=== PATIENT | female | born 1955 | race Caucasian/White ===

== ENCOUNTER 2021-05-26 09:56 | Outpatient (CLI) | payer OTHER, SELFPAY ==
--- NOTE | 2021-05-26 10:28 | ECG_ITS ---
Measurements Intervals [place] Rate: 97 P: 63 WY: 148 QRS: -16 QRSD: 83 T: 7 QT: 349 QTc: 445 Interpretive Statements SINUS RHYTHM POSSIBLE LEFT ATRIAL ENLARGEMENT [-0.1mV P WAVE IN V1/V2] BORDERLINE ECG NO PREVIOUS ECG AVAILABLE FOR COMPARISON Electronically Signed On 05-26-2021 12:21:07 CDT by Andrew Flores M.D.
[2021-05-26 10:55] LABS: Anion Gap 5 mmol/L (8-16); Blood Urea Nitrogen 14 mg/dL (7-17); Carbon Dioxide 30 mmol/L (22-30); Chloride 102 mmol/L (98-107); Estimated Glomerular Filt Rate > 60; Glucose 96 mg/dL (65-110); Potassium 3.6 mmol/L (3.4-5.0); Sodium 137 mmol/L (137-145)
[2021-05-26 10:56] LABS: Partial Thromboplastin Time 27.6 SECONDS (22.3-36.8)
== END 2021-05-26 09:57 | disposition home or self-care (01) ==
PROVIDERS: Referring Provider Anesthesiology; Visit Provider Urology
DX: N20.0 Calculus of kidney (principal); I10 Essential (primary) hypertension; Z51.81 Encounter for therapeutic drug level monitoring; Z79.899 Other long term (current) drug therapy
CPT/HCPCS: 36415; 80048; 85730; 87086; 87088; 93005

== ENCOUNTER 2021-06-01 02:14 | Day surgery (SDC) | payer OTHER, SELFPAY ==
[2021-05-25 15:18] VITALS: BMI 25.9
--- NOTE | 2021-05-25 15:50 | PC.NURSE ---
Report to the Outpatient Waiting Room, entrance under the green pavilion located off [facility], at time _7:30 AM on date __06/01/21 . OR Time: ___9:30AM . - You and your visitor will be asked a series of questions to screen for COVID 19 for your protection. - A mask is required within the hospital. Preoperative COVID Testing Requirements: No COVID Test needed if: (proof is required; if not received patient will have Rapid Test prior to entry) - Patient has received COVID Vaccine at least 14 days prior to procedure date or - Patient has positive COVID test result within last 90 days of surgery date. COVID Test needed if above criteria is not met If not COVID vaccinated a COVID test must be conducted within 72 hours of surgery and patient is asked to isolate self from time of testing until procedure. You will go to the [facility] for your COVID testing. The [employer] site is located at the corner of [address] [facility]. You will only be called if COVID results are positive and your surgeon may reschedule your elective surgery date. Patients may have clear liquids (water, carbonated beverages, clear teas, apple juice) until 3 hours prior to surgery with a maximum of 20 ounces. - No food from midnight until time of surgery - Infants may have breast milk until 4 hours before surgery, formula 6 hours prior to surgery. - Children will be allowed to drink immediately following surgery. If applicable, please bring a bottle or sippy cup to assist with drinking. Juice, water, soda, and popsicles are readily available. For infants on formula, please bring formula the day of surgery. Pacifiers are allowed. Take the following medications with a SIP of water the morning of surgery: ___NONE Medications to discontinue per physician NONE Date to take last dose Please no make-up, nail indian, hairspray, perfume, deodorant, or body powder the day of surgery. No jewelry (including any body piercings) or valuables the day of surgery, leave them at home. Please take a shower or bath the night before, or the morning of, surgery with an antibacterial soap. Wear comfortable, loose fitting clothing. Children are encouraged to wear pajamas. - Jewelry must be removed prior to entering the operating room. Rings and piercings that are not removed may be cut off. - The hospital will not accept responsibility for valuables. - Please leave all valuables, including medications, at home the day of surgery. If you are going home after surgery, a licensed recycling collections driver must drive you home. - NO public transportation without another adult. - We recommend that an adult stay with you for 24 hours following discharge. - We also recommend that you do not drive, make important decision, drink alcoholic beverages, or take any drugs that were not prescribed by your health care provider for at least 24 hours after your discharge time. For Pediatric surgeries, we recommend two adults accompany the child home (only one inside the building at this time). One visitor will be allowed to accompany the patient into the hospital. Patients visitor will be instructed to remain with patient at all times or leave the building. We will allow the visitor to come back to the postoperative area when patient is ready. Follow any additional instructions given to you from your surgeon. Telephone instructions given to __PATIENT & DAUGHTER and asked if any additional questions and then verbalized understanding. Patient advised to call surgeon office or pre surgery nurse liaison [phone] if any additional questions.
--- NOTE | ~2021-06-01 | XR_ITS ---
EXAMINATION: XR abdomen/kub 1V INDICATION: Urolithiasis TECHNIQUE: Supine views of the abdomen were obtained on 2 radiographs. COMPARISON: None FINDINGS: A 1.4 cm stone projects over the right kidney lower pole. No additional urolithiasis is faustina ntified. Surgical clips in the right upper quadrant are likely from prior cholecystectomy. The bowel gas pattern is normal. The visualized lung bases are clear. There is mild osteoarthritis of the hips. IMPRESSION: 1. Right nephrolithiasis Reviewed, dictated and finalized at location B. IMPRESSION: 1. Right nephrolithiasis
--- NOTE | 2021-06-01 08:08 | WPDHPUPDATE1 ---
History and Physical Update Update Date/Time: 06/01/21 08:08 History and Physical has been reviewed, including an updated exam of the patient. There are NO changes in the patient's condition. Risks, benefits, and alternatives have been discussed and questions answered. Patient agrees to proceed with procedure. Proceed with right renal lithotripsy
[2021-06-01 08:30] VITALS: BP 135/85; PULSE 80; RESP 18; TEMP 36.4; O2SAT 99
[2021-06-01] MEDS: LACTATED RINGERS 1,000 ML 30 ML IV CONT (08:30)
[2021-06-01 08:47] LABS: INR 0.9; Prothrombin Time 12.2 Seconds (11.1-14.7)
--- NOTE | 2021-06-01 08:54 | P.PNAN_ITS ---
Anes - Initial Pre Proc Eval Procedure: Operation Date: 06/01/21 09:30 Proposed Procedures p Right Extracorporeal Shock Wave Lithotripsy - Edgar Arauz MD Date/Time: 06/01/21 08:54 Surgeon: Edgar Arauz MD Pre Op Diagnosis: Rt Kidney Stone Patient Data Age: 65 Gender: F Height: 1.68 m Weight: 73 kg Allergies Allergy/AdvReac Type Severity Reaction Status Date / Time iohexol Allergy RASH, HIVES Verified 05/25/21 15:12 [From contrast - CT, X-RAY] Home Medications Medication Instructions Recorded Confirmed Type atorvastatin 20 mg PO DAILY 05/25/21 05/25/21 History triamterene-hydrochlorothiazid 1 tablet PO QAM 05/25/21 05/25/21 History Laboratory Tests 06/01/21 08:11 PT 12.2 Seconds Seconds (11.1-14.7) INR 0.9 Patient hx anesthesia problems: none Family hx anesthesia problems: none Results Review: All pre-operative results and documents have been reviewed as part of the pre-operative evaluation. [facility] Past Medical History Medical History GERD (gastroesophageal reflux disease) Hyperlipidemia Hypertension Social History Social History Smoking status: Never smoker Alcohol intake: never Substance use: never Living arrangements: with family Additional living arrangements comments: [facility] Spiritual care concerns: No Anes - Eval Final PreProcedure Day of Procedure 06/01/21 08:54 Patient weight: overweight Heart: regular rate and rhythm Lungs: clear to auscultation Airway: Mallampati scale class II Neurological: alert and oriented Last oral intake: >/= 8 hours ASA classification: III Emergent: no Anesthetic plan: proceed Anesthesia type and monitoring: general LMA and standard monitoring Results Review: All pre-operative results and documents have been reviewed as part of the pre-operative evaluation. Informed Consent: The patient's anesthetic plan and its attendant risks and benefits were discussed with the patient/family/POA. Questions were solicited and answers provided to the satisfaction of the patient/family/POA.
[2021-06-01] MEDS: ceFAZolin 2 GM/D5W 50 ML 2 GM/50 ML BAG IVPB (09:23)
--- NOTE | 2021-06-01 09:54 | W.PM.PROC2 ---
Procedure Note - Detailed Date of Procedure 06/01/21 Pre-op Diagnosis Rt Kidney Stone Post-op Diagnosis Same Procedure Performed ESWL of right renal calculus Surgeon Edgar Arauz MD Anesthesia General Description of Procedure Patient is taken the operative suite correctly identified. Once anesthesia was obtained the stone was localized in both planes. Two thousand five hundred shocks were given to the stone. Stone appears to be fairly hard. Will see what results she has on follow-up KUB. She was taken recovery room stable condition. Drains No Packing No Pathology None sent Complications No immediate complications Condition Stable Disposition PACU
[2021-06-01 10:03] VITALS: BP 137/85; PULSE 86; RESP 14; TEMP 36.3; O2SAT 99
[2021-06-01 10:15] VITALS: BP 129/85; PULSE 82; RESP 16; O2SAT 98
[2021-06-01 10:29] VITALS: BP 129/82; PULSE 79; RESP 16; O2SAT 94
[2021-06-01 10:31] VITALS: BP 131/83; PULSE 90; RESP 16
[2021-06-01 11:00] VITALS: BP 128/77; PULSE 82; RESP 18
== END 2021-06-01 11:21 | disposition home or self-care (01) ==
PROVIDERS: Visit Provider Urology
PROC: (CPT 50590; principal; 2021-06-01 09:30)
DX: N20.0 Calculus of kidney (principal); I10 Essential (primary) hypertension; E78.5 Hyperlipidemia, unspecified; K21.9 Gastro-esophageal reflux disease without esophagitis
CPT/HCPCS: 50590; 36415; 74018; 85610; J0690; J1100; J2405; J2704; J7120

== ENCOUNTER 2021-06-06 10:20 | Outpatient (CLI) | payer OTHER, SELFPAY ==
--- NOTE | ~2021-06-06 | XR_ITS ---
XR abdomen/kub 1V DATE: 06/06/2021 10:38 INDICATION: Lithotripsy 5 days ago for right kidney stone. Urinary frequency. TECHNIQUE: AP projection, 2 views COMPARISON: 06/01/2021 KUB FINDINGS: Approximately 3.1 cm linear array of small stones in the distal right ureter (Steinstrasse) . Some additional stone fragments may be present in the lower pole of the right kidney. Noncontrast CT abdomen pelvis would be more accurate for detection of residual fragments from the approximate 11 mm calcified stone of the right kidney noted on 05/27 07/29,022, which is no longer intact. Surgical clips, right upper quadrant, consistent with cholecystectomy. No evidence of bowel obstruction. Levoscoliosis and multilevel degenerative disc disease of the lumbar spine. Dextroscoliosis and degen erative spurring of the thoracic spine. IMPRESSION: Steinstrasse of distal right ureter Probable residual stones in the lower pole the right kidney Reviewed, dictated and finalized at Location A. Reviewed, dictated and finalized at location A.
== END 2021-06-06 10:21 | disposition home or self-care (01) ==
LOC: ANHIMG 10:22
PROVIDERS: Visit Provider Nurse Practitioner Family
DX: N20.0 Calculus of kidney (principal); R93.89 Abnormal findings on diagnostic imaging of other specified body structures
CPT/HCPCS: 74018

== ENCOUNTER 2021-06-11 09:53 | Outpatient (CLI) | payer OTHER, SELFPAY ==
--- NOTE | ~2021-06-11 | XR_ITS ---
EXAMINATION: XR abdomen/kub 1V EXAM DATE: 06/11/2021 10:11 INDICATION: Right flank pain. TECHNIQUE: Frontal projection(s) of the abdomen for interpretation. Comparison is made to prior exami nation from 06/06/2021. FINDINGS: Rather large right, small left renal contours. No suspicious soft tissue calcifications faustina ntified. There are cholecystectomy clips. Mild/moderate lumbar levoscoliosis. Small to moderate henry unt of colonic stool and gas. No small bowel obstruction. Lung bases unremarkable. IMPRESSION: 1. Rather large appearing right and small left renal contours. 2. No suspicious calcifications. Reviewed, dictated and finalized at location A.
== END 2021-06-11 09:54 | disposition home or self-care (01) ==
LOC: ANHIMG 09:56
PROVIDERS: Visit Provider Nurse Practitioner Family
DX: R10.9 Unspecified abdominal pain (principal)
CPT/HCPCS: 74018

== ENCOUNTER 2021-06-14 12:03 | Outpatient (CLI) | payer OTHER, SELFPAY ==
--- NOTE | ~2021-06-14 | CT_ITS ---
EXAMINATION: CT abdomen pelvis wo con DATE: 06/14/2021 12:22 INDICATION: Right flank pain. TECHNIQUE: Computed tomography (CT) of the abdomen and pelvis was performed without intravenous contr ast. Automated exposure control and iterative reconstruction technique were employed. The dose-length product was 221.96 mGy-cm. COMPARISON: None. FINDINGS: The visualized portions of the lung bases demonstrate mild atelectasis. No pleural effusion . The heart size is normal. No pericardial effusion. The liver and spleen are normal. There are delgado es of cholecystectomy. The pancreas and left adrenal gland are normal. There is a 3.1 cm mass in righ t adrenal gland measuring low-attenuation, consistent with an adenoma. There is a 10.1 cm cyst in rig ht kidney. There is a 2 mm right kidney stone. There are two 3 mm stones in distal right ureter. Left kidney is normal. There are no dilated loops of bowel. The appendix is normal. There is a small slid ing hiatal hernia. There are no pathologically enlarged lymph nodes. There is no free intraperitoneal fluid. There is severe thoracolumbar spondylosis. IMPRESSION: 1. Two 3 mm stones in distal right ureter. No hydronephrosis. 2. 2 mm nonobstructing right kidney stone. Reviewed, dictated and finalized at location A.
== END 2021-06-14 12:04 | disposition home or self-care (01) ==
PROVIDERS: Visit Provider Urology
DX: R10.9 Unspecified abdominal pain (principal); N20.2 Calculus of kidney with calculus of ureter
CPT/HCPCS: 74176